=== PATIENT | male | born 1970 | race American Indian/Alaskan Native ===

== ENCOUNTER 2016-12-18 09:30 | Emergency (ER) | payer MEDICAID ==
[2016-12-18 09:47] VITALS: BP 134/91
== END 2016-12-18 11:30 | disposition left against medical advice (07) ==
LOC: ED 09:30
DX: T63.441A Toxic effect of venom of bees, accidental (unintentional), initial encounter (principal); Z53.21 Procedure and treatment not carried out due to patient leaving prior to being seen by health care provider

== ENCOUNTER 2017-04-05 01:50 | Emergency (ER) | payer OTHER, MEDICAID ==
[2017-04-05 04:00] LABS: Basophils # (Auto) 0.1 K/mm3 (0.0-0.1); Basophils % (Auto) 0.7 % (0.0-1.8); Eosinophils # (Auto) 0.2 K/mm3 (0.0-0.4); Eosinophils % (Auto) 3.1 % (0.0-4.3); Hematocrit 48.3 % (35.5-45.6); Hemoglobin 16.1 gm/dl (11.8-15.2); Lymphocytes # (Auto) 1.2 K/mm3 (1.2-5.4); Mean Corpuscular HGB Conc 33 % (32-34); Mean Corpuscular Hemoglobin 33 pg (28-32); Mean Corpuscular Volume 98 fl (84-94); Monocytes # (Auto) 0.7 K/mm3 (0.0-0.8); Monocytes % (Auto) 8.9 % (0.0-7.3); Platelet Count 171 K/mm3 (140-440); Red Blood Count 4.91 M/mm3 (3.65-5.03); Red Cell Distribution Width 14.6 % (13.2-15.2)
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
[2017-04-05] MEDS ORDERED: ULTRAM PO ONE (09:21)
[2017-04-05 09:22] VITALS: BP 137/102
== END 2017-04-05 10:02 | disposition home or self-care (01) ==
LOC: ED 01:50
DX: S16.1XXA Strain of muscle, fascia and tendon at neck level, initial encounter (principal); M79.1 Myalgia; R51 Headache; V49.59XA Passenger injured in collision with other motor vehicles in traffic accident, initial encounter; F17.200 Nicotine dependence, unspecified, uncomplicated; Y93.89 Activity, other specified; Y92.89 Other specified places as the place of occurrence of the external cause; Y99.8 Other external cause status
CPT/HCPCS: 36415; 85025

== ENCOUNTER 2017-04-05 13:26 | Emergency (ER) | payer OTHER, MEDICAID ==
[2017-04-05 13:50] VITALS: BP 139/93
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
== END 2017-04-05 15:08 | disposition home or self-care (01) ==
LOC: ED 13:26
DX: M79.1 Myalgia (principal); F17.200 Nicotine dependence, unspecified, uncomplicated
CPT/HCPCS: 99282

== ENCOUNTER 2017-05-05 00:38 | Emergency (ER) | payer MEDICAID, OTHER ==
[2017-05-05] MEDS ORDERED: ASPIRIN PO ONE (01:12)
[2017-05-05 01:51] LABS: Basophils # (Auto) 0.1 K/mm3 (0.0-0.1); Basophils % (Auto) 1.1 % (0.0-1.8); Eosinophils # (Auto) 0.7 K/mm3 (0.0-0.4); Eosinophils % (Auto) 10.6 % (0.0-4.3); Hematocrit 45.7 % (35.5-45.6); Hemoglobin 15.4 gm/dl (11.8-15.2); Lymphocytes # (Auto) 1.4 K/mm3 (1.2-5.4); Lymphocytes % (Auto) 20.8 % (13.4-35.0); Mean Corpuscular HGB Conc 34 % (32-34); Mean Corpuscular Hemoglobin 33 pg (28-32); Mean Corpuscular Volume 97 fl (84-94); Monocytes # (Auto) 0.6 K/mm3 (0.0-0.8); Monocytes % (Auto) 8.5 % (0.0-7.3); Platelet Count 174 K/mm3 (140-440)
[2017-05-05 01:55] LABS: BUN/Creatinine Ratio 16; Blood Urea Nitrogen 27 mg/dL (9-20); Calcium 9.3 mg/dL (8.4-10.2); Hemolysis Index 16
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
[2017-05-05] MEDS ORDERED: NORCO 5/325 PO ONE (06:56)
[2017-05-05] MEDS ORDERED: ASPIRIN ONE (07:04)
--- NOTE | 2017-05-05 07:05 | XRay Report ---
FINAL REPORT EXAM: XR CHEST 1V AP HISTORY: CP TECHNIQUE: AP portable view(s) of the chest obtained. PRIORS: None. FINDINGS: No mediastinal shift. Cardiac silhouette is not enlarged. There is faint right paratracheal opacification and slightly abnormal contour of the trachea at and just above the level of the aortic arch. No pneumothorax, effusion, or focal airspace disease identified. No acute skeletal findings. IMPRESSION: There are no acute pulmonary findings, however there is faint right paratracheal opacification and suggested slightly abnormal contour of the trachea. CT chest with contrast is recommended for further evaluation. Differential diagnosis includes prominence of the superior vena cava, azygos vein, lymphadenopathy and neoplasm. Notification initiated via [employer] windows server support technician immediately following this dictation on 05/05/2017.
[2017-05-05] MEDS ORDERED: NACL 0.9% 1000 ML 1,000 ML IV ONE (07:09)
--- NOTE | 2017-05-05 09:01 | Cat Scan Report ---
CT chest without contrast: Evaluation of right paratracheal fullness on recent chest exam. Unenhanced transverse images are performed through the chest with coronal and sagittal 2-D reformatted images. No hilar or mediastinal adenopathy. Central airways are completely patent and normal in position. No pulmonary nodules nor pleural changes identified. Mild dependent appearing atelectasis noted posteriorly at the lung bases. Impression: No significant pathology identified.
[2017-05-05 12:37] VITALS: BP 139/90
== END 2017-05-05 14:36 | disposition home or self-care (01) ==
LOC: ED 00:38
DX: R07.9 Chest pain, unspecified (principal); M79.604 Pain in right leg; F17.200 Nicotine dependence, unspecified, uncomplicated
CPT/HCPCS: 36415; 71045; 71250; 80048; 84484; 85025; 85379; 93005; 93010; 96360; 99285; G0480; J7030; 80320

== ENCOUNTER 2017-05-05 18:58 | Emergency (ER) | payer MEDICAID ==
[2017-05-05 21:05] LABS: Basophils % (Auto) 0.9 % (0.0-1.8); Eosinophils # (Auto) 0.4 K/mm3 (0.0-0.4); Eosinophils % (Auto) 8.3 % (0.0-4.3); Hematocrit 45.1 % (35.5-45.6); Hemoglobin 15.1 gm/dl (11.8-15.2); Lymphocytes % (Auto) 22.1 % (13.4-35.0); Mean Corpuscular HGB Conc 34 % (32-34); Mean Corpuscular Hemoglobin 32 pg (28-32); Mean Corpuscular Volume 95 fl (84-94); Monocytes # (Auto) 0.3 K/mm3 (0.0-0.8); Monocytes % (Auto) 6.6 % (0.0-7.3); Platelet Count 169 K/mm3 (140-440); Red Blood Count 4.73 M/mm3 (3.65-5.03); Red Cell Distribution Width 13.9 % (13.2-15.2)
[2017-05-05 21:21] LABS: BUN/Creatinine Ratio 17; Blood Urea Nitrogen 22 mg/dL (9-20); Calcium 8.9 mg/dL (8.4-10.2); Hemolysis Index 68
--- NOTE | 2017-05-05 21:58 | XRay Report ---
FINAL REPORT EXAM: XR CHEST ROUTINE 2V HISTORY: Shortness of breath TECHNIQUE: Two view chest PA and lateral PRIORS: None. FINDINGS: Cardiac and mediastinal contours are unremarkable. No focal pulmonary infiltrate is identified. No pleural fluid collection seen. Pulmonary vasculature is unremarkable. IMPRESSION: Negative two-view chest
[2017-05-06 07:37] VITALS: BP 135/100
[2017-05-06] MEDS ORDERED: TORADOL IM ONE (09:32)
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
== END 2017-05-06 10:17 | disposition home or self-care (01) ==
LOC: ED 18:58
DX: R07.9 Chest pain, unspecified (principal); M79.604 Pain in right leg; M79.605 Pain in left leg; I10 Essential (primary) hypertension; F17.200 Nicotine dependence, unspecified, uncomplicated
CPT/HCPCS: 36415; 71046; 80048; 84484; 85025; 93005; 93010

== ENCOUNTER 2017-06-07 19:42 | Emergency (ER) | payer MEDICAID ==
[2017-06-07 22:06] VITALS: BP 137/92
[2017-06-07 22:44] LABS: Basophils # (Auto) 0.1 K/mm3 (0.0-0.1); Basophils % (Auto) 1.6 % (0.0-1.8); Eosinophils # (Auto) 0.6 K/mm3 (0.0-0.4); Eosinophils % (Auto) 6.4 % (0.0-4.3); Hematocrit 49.9 % (35.5-45.6); Hemoglobin 16.4 gm/dl (11.8-15.2); Lymphocytes # (Auto) 2.2 K/mm3 (1.2-5.4); Lymphocytes % (Auto) 23.2 % (13.4-35.0); Mean Corpuscular HGB Conc 33 % (32-34); Mean Corpuscular Hemoglobin 32 pg (28-32); Mean Corpuscular Volume 97 fl (84-94); Monocytes # (Auto) 0.7 K/mm3 (0.0-0.8); Monocytes % (Auto) 7.7 % (0.0-7.3); Red Blood Count 5.16 M/mm3 (3.65-5.03); Red Cell Distribution Width 14.7 % (13.2-15.2)
[2017-06-07 22:47] LABS: Platelet Count 172 K/mm3 (140-440)
[2017-06-07 22:50] LABS: BUN/Creatinine Ratio 10; Blood Urea Nitrogen 14 mg/dL (9-20); Calcium 9.5 mg/dL (8.4-10.2); Hemolysis Index 36
[2017-06-07 23:25] LABS: Amphetamine Screen,Urine PRESUMPTIVE NEGATIVE; Benzodiazepines Screen,Urine PRESUMPTIVE NEGATIVE; Cannabinoid Screen,Urine PRESUMPTIVE NEGATIVE; Cocaine Screen,Urine PRESUMPTIVE NEGATIVE; Methadone Screen,Urine PRESUMPTIVE NEGATIVE; Opiate Screen,Urine PRESUMPTIVE NEGATIVE
[2017-06-07 23:31] LABS: Amorphous Crystals,Urine Few; Bilirubin,Urine NEG (Negative); Blood,Urine SM (Negative); Color,Urine Yellow (Yellow); Hyaline Casts,Urine 9 /LPF; Mucus,Urine FEW /HPF
[2017-06-07 23:34] LABS: Protein,Urine >500 mg/dL (Negative)
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
== END 2017-06-08 06:25 | disposition home or self-care (01) ==
LOC: ED 19:42
DX: B34.9 Viral infection, unspecified (principal); E11.9 Type 2 diabetes mellitus without complications; F17.200 Nicotine dependence, unspecified, uncomplicated
CPT/HCPCS: 36415; 80048; 80307; 81001; 85025; 99283; G0480; 80320

== ENCOUNTER 2017-07-14 22:07 | Emergency (ER) | payer MEDICAID, OTHER ==
[2017-07-14] MEDS ORDERED: ASPIRIN PO ONE (22:21)
[2017-07-14 22:22] VITALS: BP 143/90
[2017-07-14 22:51] LABS: Basophils % (Auto) 0.2 % (0.0-1.8); Eosinophils # (Auto) 0.5 K/mm3 (0.0-0.4); Eosinophils % (Auto) 10.1 % (0.0-4.3); Hematocrit 43.8 % (35.5-45.6); Hemoglobin 14.5 gm/dl (11.8-15.2); Lymphocytes # (Auto) 1.7 K/mm3 (1.2-5.4); Lymphocytes % (Auto) 34.7 % (13.4-35.0); Mean Corpuscular HGB Conc 33 % (32-34); Mean Corpuscular Hemoglobin 32 pg (28-32); Mean Corpuscular Volume 96 fl (84-94); Monocytes # (Auto) 0.4 K/mm3 (0.0-0.8); Platelet Count 183 K/mm3 (140-440); Red Blood Count 4.56 M/mm3 (3.65-5.03); Red Cell Distribution Width 14.1 % (13.2-15.2)
[2017-07-14 23:12] LABS: Alanine Aminotransferase 11 units/L (7-56); Albumin 3.9 g/dL (3.9-5); BUN/Creatinine Ratio 11; Blood Urea Nitrogen 14 mg/dL (9-20); Calcium 8.5 mg/dL (8.4-10.2); Hemolysis Index 12; Lipase 31 units/L (13-60)
== END 2017-07-15 00:20 | disposition left against medical advice (07) ==
LOC: ED 22:07
DX: R07.9 Chest pain, unspecified (principal); Z53.21 Procedure and treatment not carried out due to patient leaving prior to being seen by health care provider
CPT/HCPCS: 36415; 80053; 83690; 84484; 85025; 93005; 93010

== ENCOUNTER 2018-01-10 19:25 | Emergency (ER) | payer MEDICAID ==
[2018-01-10] MEDS ORDERED: ASPIRIN PO ONE (19:41)
[2018-01-10] MEDS ORDERED: LIDOCAINE VISCOUS 2% PO ONE (22:53)
[2018-01-10] MEDS ORDERED: TYLENOL PO ONE (22:53)
[2018-01-10] MEDS ORDERED: TORADOL IM ONE (22:53)
[2018-01-10 22:54] VITALS: BP 162/104
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
--- NOTE | 2018-01-10 23:33 | XRay Report ---
FINAL REPORT EXAM: XR CHEST ROUTINE 2V HISTORY: cough rib pain TECHNIQUE: PA and lateral views of the chest Comparison: Chest x-ray dated May 05, 2017 FINDINGS: There is no evidence of focal infiltrate, pneumothorax or pleural fluid collection. The The cardiac silhouette is normal size. The bony structures are notable for mild dextrocurvature of the lower thoracic spine. The ribs are unremarkable in appearance. IMPRESSION: 1. No evidence of an acute pulmonary process. 2. Mild dextrocurvature lower thoracic spine.
== END 2018-01-11 00:05 | disposition home or self-care (01) ==
LOC: ED 19:25
DX: J20.9 Acute bronchitis, unspecified (principal); E11.9 Type 2 diabetes mellitus without complications; F17.200 Nicotine dependence, unspecified, uncomplicated
CPT/HCPCS: 71046; 93005; 93010; 96372; 99283; J1885

== ENCOUNTER 2019-02-14 21:54 | Emergency (ER) | payer MEDICAID ==
[2019-02-14 22:36] VITALS: BP 161/98
== END 2019-02-14 23:00 | disposition left against medical advice (07) ==
LOC: ED 21:54
DX: H92.02 Otalgia, left ear (principal); Z53.21 Procedure and treatment not carried out due to patient leaving prior to being seen by health care provider

== ENCOUNTER 2019-02-15 14:59 | Emergency (ER) | payer MEDICAID ==
[2019-02-15 15:45] VITALS: BP 162/101
--- NOTE | 2019-02-15 17:08 | Event Note ---
ED Screening Note Date of service: 02/15/19 Time: 17:07 ED Screening Note: 48 y o male presents with bug in left ear x 1 day This initial assessment/diagnostic orders/clinical plan/treatment(s) is/are subject to change based on patients health status, clinical progression and re- assessment by fellow clinical providers in the ED. Further treatment and workup at subsequent clinical providers discretion. Patient/guardian urged not to elope from the ED as their condition may be serious if not clinically assessed and managed. Initial orders include:
[2019-02-15] MEDS ORDERED: IBUPROFEN 800 MG TAB PO ONE (20:57)
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
== END 2019-02-15 22:12 | disposition left against medical advice (07) ==
LOC: ED 14:59
DX: T16.2XXA Foreign body in left ear, initial encounter (principal); E11.9 Type 2 diabetes mellitus without complications; F32.9 Major depressive disorder, single episode, unspecified; Z79.1 Long term (current) use of non-steroidal anti-inflammatories (NSAID); Z79.899 Other long term (current) drug therapy; X58.XXXA Exposure to other specified factors, initial encounter; Y93.89 Activity, other specified; Y92.89 Other specified places as the place of occurrence of the external cause; Y99.8 Other external cause status
CPT/HCPCS: 99281